=== PATIENT | female | born 2000 | race Caucasian/White ===

== ENCOUNTER 2025-04-07 11:08 | Emergency (ER) | payer OTHER, SELFPAY ==
--- OUTSIDE RECORDS SUMMARY | 2025-02-07 11:00 | XMS_ITS | Encounter Summary ---
[facility] [address] [place] [address] Care Team Providers Care Tug Master Name Role Phone Del Davidson APRN Primary Care Provider + Encounter Details Date Type Department Care Team (Late st Contact Info) Description 02/07/2025 11:00 AM EDT Lab [facility] [address] [place] [phone] Myxedema heart disease; care, subsequent , second trimester Social History Tobacco Use Types Packs/Day Years Used Date Smoking Tobacco: Former Cigarettes 0.3 5 0 06/16/2017 - 07/17/2022 Smokeless Tobacco: Never Alcohol Use Standard Drinks/Week Comments Never 0 (1 standard drink = 0.6 oz pur e alcohol) [facility] Utilities Answer Date Recorded In the past 12 months has [employer] electric, gas, oil, or water company threatened to shut off services in your home? No 06/15/2023 AUDIT-C Answer Date Recorded Q1: How often do you have a drink containing alcohol? Never 06/15/2023 Q2: How many drinks containi ng alcohol do you have on a typical day when you are drinking? Patient does not drink Q3: How often do you have si x or more drinks on one occasion? Never 06/15/2023 Overall Financial Resource Strain (CARDIA) Answe r Date Recorded How hard is it for you to pa y for the very basics like food, housing, medical care, and heating? Not hard at all 06/15/2023 PHQ-2 Answer Date Recorded Retired PHQ-9: Brief Depression Severity Measure Score 0 03/25/2023 [place] [employer] Health - Occupational Stress Questionnaire Answer Date Recorded Do you feel stress - tense, restless, nervous, or anxious, or unable to sleep at night because your mind is troubled all the time - these days? Not at all 06/15/2023 Exercise Vital Sign Answer Date Recorde d On average, how many days pe r week do you engage in moderate to strenuous exercise (like a brisk walk)? 3 days 06/15/2023 On average, how many minutes do you engage in exercise at this level? 30 min 06/15/2023 Hunger Vital Sign Answer Date Recorded Within the past 12 months, y ou worried that your food would run out before you got the money to buy more. Never true 06/15/20 23 Within the past 12 months, t he food you bought just didn't last and you didn't have money to get more. Never true 06/15/2023 PRAPARE - Transportation Answer Date Re corded In the past 12 months, has l ack of transportation kept you from medical appointments or from getting medications? No 05/18 In the past 12 months, has l ack of transportation kept you from meetings, work, or from getting things needed for daily living? No 06/15/2023 [place] Depression Scale Answer Date Recorded [place] Depression Scale Total 1 06/24/2023 The thought of harming myself has occurred to me . Unrecognized value 06/24/2023 Abuse Screen Answer Date Recorded Feels Unsafe at Home or Work/School no 06/15/2023 Feels Threatened by Someone no 05/18 Does Anyone Try to Keep You From Having Contact with Others or Doing Things Outside Your Home? no 06/15/2023 Physical Signs of Abuse Present no 06/15/2023 Housing Stability Answer Date Recorded Current Living Arrangements home 05/18 Potentially Unsafe Housing Conditions none 06/15/2023 Family and Community Support Answer Leonardo e Recorded If for any reason you need h elp with day-to-day activities such as bathing, preparing meals, shopping, managing finances, etc., do you get the help you need? I don't need any help 06/15/2023 How often do you feel lonely or isolated from those around you? Never 06/15/2023 Employment Answer Date Recorded Do you want help finding or keeping work or a job? I do not need or want help 06/15/2023 Disabilities Answer Date Recorded Difficulty Concentrating, Remembering or Making Decisions no 06/15/2023 Difficulty Managing Errands Independently no 06/15/2023 Education Answer Date Recorded Do you want help with school or training? For example, starting or completing job training or getting a high school diploma, GED or equivalent No 06/15/2023 Preferred Language Honduran 06/15/2023 PHQ-2 Answer Date Recorded Patient Health Questionnaire-2 Score 0 06/23/2024 Estimated Date of Delivery Comme nts Yes 06/22/2025 Sex and Gender Information Value Date Recorded Sex Assigned at Female 08/23/2024 10:58 PM EDT Legal Sex Female 11:21 AM EDT Gender Identity Not on file Sexual Orientation Straight 08/23/2024 10 :58 PM EDT documented as of this encounter Plan of Treatment Upcoming Encounters Date Type Department Care Team (Late st Contact Info) Description 06/27/2025 11:15 AM EST Office Visit [facility] [address] [place] [phone] Saira Castillo MD [facility] [address] [place], [place] [phone] 08/15/2025 12:15 PM EST Office Visit [facility] [address] [place] [phone] Saira Castillo MD [facility] [address] [place] [phone] documented as of this encounter Procedures Procedure Name Priority Date/Time Associated Diagnosis Comments TSH RFX ON ABNORMAL TO FREE T4 Routine 02/07/2025 10:42 AM EDT Myxedema heart disease care, subsequent , second trimester BILE ACIDS, TOTAL Routine 02/07/2025 10: 42 AM EDT Myxedema heart disease care, subsequent , second trimester documented in this encounter Results * TSH Rfx On Abnormal To Free T4 (02/07/2025 10:42 AM EDT) TSH 2.600 0.270 - 4.200 uIU/mL 02/07/2025 3:25 PM EDT [facility] Blood Venipuncture / Unknown 02/07/2025 10:42 AM EDT 02/07/2025 10:42 AM EDT us Susie De La Garza MD LAB BLOOD ORDERABLES Final Re sult [facility]
[address] [place] [address], * Bile Acids, Total (02/07/2025 10:42 AM EDT) Pathologist [facility] Bile Acids Total 4 0 - 10 umol/L 02/07/2025 3:17 PM EDT [facility] Blood Venipuncture / Unknown 02/07/2025 10:42 AM EDT 02/07/2025 10:42 AM EDT us Susie De La Garza MD LAB BLOOD ORDERABLES Final Re sult [facility]
[address] [place] [address], documented in this encounter Visit Diagnoses Diagnosis Myxedema heart disease Unspecified hypothyroidism care, subsequent , second trimester documented in this encounter Care Teams Tug Master Relationship Specialty Start Date End Date Del Davidson APRN [address] [place] [address] PCP - General Family Medicine 09/24/22 documented as of this encounter
--- OUTSIDE RECORDS SUMMARY | 2025-03-07 14:20 | XMS_ITS | Encounter Summary ---
Author Organization [facility] y[facility] Address [address] [place] [address] Care Team Providers Care Senior International Tax Manager Name Role Phone Del Davidson APRN Primary Care Provider + Encounter Details Date Type Department Care Team (Late st Contact Info) Description 03/07/2025 2:20 PM EDT Lab [facility] [address] [place] [phone] care, subsequent , second trimester Social History Tobacco Use Types Packs/Day Years Used Date Smoking Tobacco: Former Cigarettes 0.3 5 0 06/16/2017 - 07/17/2022 Smokeless Tobacco: Never Alcohol Use Standard Drinks/Week Comments Never 0 (1 standard drink = 0.6 oz pur e alcohol) [facility] Utilities Answer Date Recorded In the past 12 months has e electric, gas, oil, or water company threatened [...] Brief Depression Severity Measure Score 0 03/25/2023 [place] [employer] [place] [employer] - Occupational Stress Questionnaire Answer Date [...] things needed for daily living? No 06/15/2023 [place] Depression Scale Answer Date Recorded [place] Depression Scale Total 1 06/24/2023 The thought [...] GED or equivalent No 06/15/2023 Preferred Language Panamanian 06/15/2023 PHQ-2 Answer Date Recorded Patient Health [...] Description 06/27/2025 11:15 AM EST Office Visit [facility] [address] [place] [phone] Saira Castillo MD [address] [place], [place] [address] [place], [place] [phone] 08/15/2025 12:15 PM EST Office Visit [facility] [address] [place] [phone] Saira Castillo MD [facility] [address] [place] [phone] documented as of this encounter Procedures Procedure Name Priority Date/Time Associated Diagnosis Comments POCT GLUCOSE FINGERSTICK Routine 03/07/2025 2:19 PM EDT TREPONEMA PALLIDUM AB W/REFLEX RPR Routine 03/07/2025 2:18 PM EDT care, subsequent , second trimester TSH RFX ON ABNORMAL TO FREE T4 Routine 03/07/2025 2:18 PM EDT care, subsequent , second trimester GLUCOSE, POST 50 GM GLUCOLA Routine 03/07/2025 2:18 PM EDT care, subsequent , second trimester CBC (NO DIFF) Routine 03/07/2025 2:18 PM EDT care, subsequent , second trimester documented in this encounter Results * (ABNORMAL) POC Glucose (03/07/2025 2:19 PM EDT) Glucose 151(H) 70 - 130 mg/dL 03/07/2025 2:21 PM EDT [facility] Comment:Serial Number: [id number] Blood 03/07/2025 2:19 PM EDT 03/07/2025 2:21 PM EDT us Susie De La Garza MD POINT OF CARE TEST ORDERABLES Final Result [facility]
[address] [place] [address], [place] [phone] * TSH Rfx On Abnormal To Free T4 (03/07/2025 2:18 PM EDT) TSH 1.880 0.270 - 4.200 uIU/mL 03/07/2025 7:39 PM EDT [facility] Blood Venipuncture / Unknown 03/07/2025 2:18 PM EDT 03/07/2025 2:18 PM EDT us Susie De La Garza MD LAB BLOOD ORDERABLES Final Re sult [facility]
[address] [place] [address], [place] [phone] * Treponema pallidum AB w/Reflex RPR (03/07/2025 2:18 PM EDT) Pathologist [facility] Treponemal AB Total Non-Reacti ve Non-React florencio 03/07/2025 7:39 PM EDT [facility] Blood Venipuncture / Unknown 03/07/2025 2:18 PM EDT 03/07/2025 2:18 PM EDT Narrative [facility] - 03/07/2025 7:39 PM EDT Reactive results will reflex RPR testing. Susie De La Garza MD LAB BLOOD ORDERABLES Final Re sult [facility]
[address] [place] [address], * (ABNORMAL) CBC (No Diff) (03/07/2025 2:18 PM EDT) [facility] WBC 9.17 3.40 - 10.80 10*3/mm3 03/07/2025 7:12 PM EDT [facility] RBC 4.33 3.77 - 5.28 10*6/mm3 03/07/2025 7:12 PM EDT [facility] Hemoglobin 10.8(L) 12.0 - 15.9 g/dL 03/07/2025 7:12 PM EDT [facility] Hematocrit 34.7 34.0 - 46.6 % 03/07/2025 7:12 PM EDT [facility] MCV 80.1 79.0 - 97.0 fL 03/07/2025 7:12 PM EDT [facility] MCH 24.9(L) 26.6 - 33.0 pg 03/07/2025 7:12 PM EDT [facility] MCHC 31.1(L) 31.5 - 35.7 g/dL 03/07/2025 7:12 PM EDT [facility] RDW 13.4 12.3 - 15.4 % 03/07/2025 7:12 PM EDT [facility] RDW-SD 38.6 37.0 - 54.0 fl 03/07/2025 7:12 PM EDT [facility] MPV 10.4 6.0 - 12.0 fL 03/07/2025 7:12 PM EDT [facility] Platelets 355 140 - 450 10*3/mm3 03/07/2025 7:12 PM EDT [facility] Blood Venipuncture / Unknown 03/07/2025 2:18 PM EDT 03/07/2025 2:18 PM EDT us Susie De La Garza MD LAB BLOOD ORDERABLES Final Re sult Performing Organization Address City/[facility]/ZIP Co de Phone Number [facility]
[address] [place] [address], [place] [phone] * Glucose, Post 50 Gm Glucola (03/07/2025 2:18 PM EDT) [facility] Gestational GCT 138 65 - 139 mg/dL 03/07/2025 3:03 PM EDT [facility] Blood Venipuncture / Unknown 03/07/2025 2:18 PM EDT 03/07/2025 2:18 PM EDT us Susie De La Garza MD LAB BLOOD ORDERABLES Final Re sult Performing Organization Address City/[facility]/ZIP Co de Phone Number [facility]
[address] [place] [address], [place] [phone] documented in this encounter Visit Diagnoses Diagnosis care, subsequent , second trimester documented in this encounter Care Teams Senior International Tax Manager Relationship Specialty Start Date End Date Del Davidson APRN [address] [place] [address] [address] [place] [address] PCP - General Family Medicine 09/24/22 documented as of this encounter
[2025-04-07 11:08] VITALS: BP 128/68; PULSE 90; RESP 20; TEMP 36.4; O2SAT 100; BMI 37.5
--- NOTE | 2025-04-07 11:09 | ECG_ITS ---
APPROVED REPORT Exam: Resting ECG HR:84 bpm ECG Measurements Heart Rate 84 AXES MN 150 P 32 QRSd 78 QRS 62 QT 364 T 18 QTc 404 Conclusion SINUS RHYTHM LOW QRS VOLTAGE IN PRECORDIAL LEADS [QRS DEFLECTION < 1.0 mV IN CHEST LEADS] NONSPECIFIC ST & T-WAVE ABNORMALITY BORDERLINE ECG UNCONFIRMED REPORT Normal sinus rhythm. No ST elevation or depression. QTc normal at 404 Electronically signed by : ROSENDO MALLORY, 04/07/2025 14:22:36
--- NOTE | 2025-04-07 11:19 | XR_ITS ---
FINAL REPORT CLINICAL HISTORY: right chest pain, cough pt 29 weeks , double shielded COMPARISON: None FINDINGS: A single frontal view of the chest was obtained. There are increased markings in the right lung base compatible with pneumonia. The left lung is clear. There is no evidence of effusion or pneumothorax. Mediastinum is unremarkable. Heart size is normal. IMPRESSION: Right basilar pneumonia without effusion. Reviewed, Interpreted and Dictated by Camryn Douglas MD Transcribed by Mali Hernandez Authenticated and [facility]
--- NOTE | 2025-04-07 11:21 | HMH.EDCP ---
Discharge Plan Disposition Patient Disposition: Home, Self-Care Prescriptions Prescriptions: New azithromycin 250 mg tablet See Rx Instructions .ROUTE .COMPLEX Qty: 6 0RF Rx Instructions: For 250 mg dose pack: take 500 mg today (day 1), then 250 mg for 4 days (days 2-5) amoxicillin 500 mg capsule 1,000 mg PO TID 7 Days Qty: 42 0RF Activity Restrictions/Add. Instructions Additional Instructions/Restrictions: Your chest x-ray today showed a right sided pneumonia. You are being prescribed 2 different antibiotics to treat this. Take these as prescribed. I do encourage you to follow-up with your OB physician regarding these results, especially if symptoms do not improve. 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 Patient states that starting last night, she developed sharp right-sided chest pain that is worse with deep breathing. She denies any abdominal pain. She reports episode of vomiting last night. She denies any dysuria or hematuria. She denies any history of heart or lung issues. She denies any fevers. She does have a history of reflux and called her OB yesterday who recommended that she take Pepcid, which provided some relief but did not take it away completely. She does state that she was recently exposed to a friend who was seen in the ER and diagnosed with a viral illness. Related Data Previous Rx's ?Medication ?Instructions ?Recorded amoxicillin 500 mg capsule 1,000 mg (2 x 500 mg) PO TID 7 04/07/25 days #42 caps azithromycin 250 mg tablet See Rx Instructions PO .COMPLEX #6 04/07/25 tabs Allergies Allergy/AdvReac Type Severity Reaction Status Date / Time No Known Allergies Allergy Verified 04/07/25 11:28 [facility] Disclaimer: The information contained in this section may have been updated after the patient was seen, as this information can be updated by other users. Social History Smoking Status: Never smoker alcohol intake: never current occupational status: employed Travel in the last 8 weeks?: None ROS Obtained: Yes Systems reviewed as appropriate & no additional complaints except as documented Physical Exam General General appearance: alert and in no apparent distress Head Head exam: atraumatic Eye Eye exam: Present normal appearance ENT ENT exam: Present normal external ear exam Neck Neck exam: Present full ROM Chest Chest inspection: Present symmetric chest wall rise Respiratory Respiratory exam: Present normal lung sounds bilaterally; Absent respiratory distress, wheezes or stridor Cardiovascular Cardiovascular exam: Present regular rate, normal rhythm and normal heart sounds Abdominal Exam Abdominal exam: Present soft and distention (Gravid abdomen); Absent tenderness or guarding Extremities Exam Extremities exam: Present normal inspection Back Exam Back exam: Present normal inspection Neurological Exam Neurological exam: Present alert and oriented X3 Psychiatric Psychiatric exam: Present normal affect Skin Skin exam: Present warm and dry HEART Score HEART Score HEART Score assessment performed?: Yes HEART Score: 0 Critical Care Critical Care Time Critical Care Time: No Medical Decision Making Dane Inquiry Pt receiving controlled substance: No Vital Signs Vital Signs: 04/07/25 11:08 04/07/25 11:27 04/07/25 11:31 Temperature 97.6 F Temperature Source Oral Pulse Rate 90 89 Pulse Rate [Left Radial] 90 Respiratory Rate 20 19 Blood Pressure 110/67 Blood Pressure [Right Arm] 128/68 Blood Pressure Mean Blood Pressure Mean [Right Arm] 88 02 Sat by Pulse Oximetry 100 98 Oxygen Delivery Method Room Air Room Air 04/07/25 12:00 04/07/25 12:30 Temperature Temperature Source Pulse Rate 88 83 Pulse Rate [Left Radial] Respiratory Rate 23 23 Blood Pressure 109/67 L 104/64 L Blood Pressure [Right Arm] Blood Pressure Mean 75 76 Blood Pressure Mean [Right Arm] 02 Sat by Pulse Oximetry 98 97 Oxygen Delivery Method Lab Data Labs: Lab Results 04/07/25 11:20: WBC 10.6, RBC 4.50, Hgb 11.0 L, Hct 35.5 L, MCV 78.9 L, MCH 24.4 L, MCHC 31.0 L, RDW 13.7, Plt Count 336, MPV 9.6, Neut % (Auto) 77.8, Lymph % (Auto) 14.5, [place] % (Auto) 6.2, Eos % (Auto) 0.8, Baso % (Auto) 0.3, Neut # (Auto) 8.3 H, Lymph # (Auto) 1.5, [place] # (Auto) 0.7, Eos # (Auto) 0.1, Baso # (Auto) 0.0, Sodium 134 L, Potassium 3.8, Chloride 104, Carbon Dioxide 23, Anion Gap 10.8, BUN 4 L, Creatinine 0.50 L, Estimated Creat Clear 250, Estimated GFR 149, Est GFR ( Amer) 180, Glucose 98, Calcium 8.2 L, Total Bilirubin 0.8, AST 19, ALT 18, Alkaline Phosphatase 144 H, Troponin I < 0.01, NT-Pro-B Natriuret Pep 173 H, Total Protein 6.7, Albumin 3.5, Globulin 3.2, Albumin/Globulin Ratio 1.1, Lipase 59, SARS-CoV-2 (PCR) Not detected, Influenza A Untype (PCR) Not detected, Influenza Type B (PCR) Not detected 04/07/25 11:44: Urine Color Yellow, Urine Appearance Sl cloudy, Urine pH 7.0, Ur Specific [place] 1.020, Urine Protein Negative, Urine Glucose (UA) Negative, Urine Ketones 2+, Urine Blood Negative, Urine Nitrate Negative, Urine Bilirubin Negative, Urine Urobilinogen 1.0, Ur Leukocyte Esterase Negative, Urine RBC None, Urine WBC None, Ur Squamous Epith Cells 50-100, Urine Bacteria 3+ 04/07/25 11:20 04/07/25 11:20 Response Orders (Tests/Meds): ED MEDICATIONS Discontinued Medications Generic Name Dose Route Start Last Admin Trade Name Freq PRN Reason Stop Dose Admin Acetaminophen 1,000 mg 04/07/25 11:19 04/07/25 11:45 Acetaminophen 500mg Tab PO 04/07/25 11:20 1,000 mg ONCE ONE Administration ORDERS Category Date Time Status CXR --portable [XR chest portable] Stat Exams 04/07/25 11:19 Completed BNP [NT Pro Brain Natriuretic Pep.] Stat Lab 04/07/25 11:20 Completed CBC w/Auto Diff [Complete Blood Count Auto Diff] Stat Lab 04/07/25 11:20 Completed CMP [Comprehensive Metabolic Panel] Stat Lab 04/07/25 11:20 Completed Lipase Stat Lab 04/07/25 11:20 Completed Rapid PCR Covid and Flu A/B Stat Lab 04/07/25 11:20 Completed Troponin I Q3H Lab 04/07/25 14:30 Ordered Troponin I Q3H Lab 04/07/25 17:30 Ordered Troponin I Stat Lab 04/07/25 11:20 Completed UA [Urinalysis and Microscopic] Stat Lab 04/07/25 11:44 Completed Urine Culture Stat Micro 04/07/25 11:44 Received ECG Data Tracing #1: Attestation: I reviewed this ECG and interpreted as documented below: ECG Narrative: Normal sinus rhythm. No ST elevation or depression. 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 Patient states that starting last night, she developed sharp right-sided chest pain that is worse with deep breathing. She denies any abdominal pain. She reports episode of vomiting last night. She denies any dysuria or hematuria. She denies any history of heart or lung issues. She denies any fevers. She does have a history of reflux and called her OB yesterday who recommended that she take Pepcid, which provided some relief but did not take it away completely. She does state that she was recently exposed to a friend who was seen in the ER and diagnosed with a viral illness. On arrival, patient is normotensive, afebrile, heart rate within normal limits, breathing comfortably on room air with appropriate oxygen saturation. Physical exam, as stated above, revealed an overall well-appearing female in no distress. She does have a gravid abdomen but abdomen is soft, nontender nondistended. Cardiopulmonary exam reveals no wheezing, rales or rhonchi. She has no reproducible tenderness on chest palpation. Differential diagnosis includes, but is not limited to: Viral respiratory illness, referred pain, pneumonia, pleurisy, costochondritis, ACS, pericarditis, acute pancreatitis, viral respiratory illness, among others. The most morbid conditions were considered and workup was based on these. I have low suspicion for PE as patient is PERC negative and is negative on adapted years criteria Workup in the emergency department included: EKG, troponin, BNP, CBC with differential, CMP, COVID/flu swab urinalysis, lipase, urinalysis. Patient was amenable to chest x-ray with shielding of her abdomen as well as 1 g oral Tylenol. Patient's workup showed no leukocytosis, mildly low hemoglobin of 11 and hematocrit of 35.5. Patient does believe that her blood counts have been low in the past but again has no bleeding at this time. Mildly low sodium 134 but electrolytes otherwise unremarkable nonactionable. No ARELIS. Liver enzymes and bilirubin within normal limits. Very mildly elevated NT proBNP at 173 and troponin less than 0.01. Lipase normal at 59. Urine without protein but severely contaminated with 50-100 squamous epithelial cells. No leukocyte esterase or nitrates. Patient does have bacteria, however given significantly contaminated sample, I do not feel that this needs to be treated. Negative flu and COVID testing. EKG without evidence of ischemia. See interpretation above Chest x-ray was interpreted by me personally. She has a right lower lobe consolidation concerning for pneumonia. See radiology report for details. Given this, we will place patient on amoxicillin as well as azithromycin to cover for possible atypicals. I discussed these results with patient she was in agreement with this plan. I did instruct her to follow-up closely with her RULING MACHINE SET UP OPERATOR regarding her pneumonia as well as her anemia. Return precautions were given. All questions were answered. She demonstrated understanding and was in agreement with this plan. She was then discharged from the emergency department in stable condition.
[2025-04-07 11:27] VITALS: PULSE 90
[2025-04-07 11:28] LABS: Coronavirus 19, PCR Not Detected (NotDetected); Influenza A, PCR Not Detected (NotDetected); Influenza B, PCR Not Detected (NotDetected)
[2025-04-07 11:29] LABS: Hematocrit 35.5 % (37.0-47.0); Hemoglobin 11.0 g/dL (12.2-16.2); Immature Granulocytes % 0.4 %; Mean Corpuscular HGB Conc 31.0 g/dL (31.8-35.4); Mean Corpuscular Hemoglobin 24.4 pg (27.0-31.2); Mean Corpuscular Volume 78.9 fl (81-99); Nucleated Red Blood Cells % 0 %; Platelet Count 336 K/mm3 (142-424); Red Blood Count 4.50 M/mm3 (4.20-5.40); Red Cell Distribution Width-SD 39.5 fL; White Blood Count 10.6 K/mm3 (4.8-10.8)
[2025-04-07 11:31] VITALS: BP 110/67; PULSE 89; RESP 19; O2SAT 98
[2025-04-07] MEDS: ACETAMINOPHEN 500MG TAB 1000 MG PO (11:45)
[2025-04-07 11:47] LABS: Albumin Level 3.5 g/dl (3.5-5.0); Albumin/Globulin Ratio 1.1 (1.1-1.8); Blood Urea Nitrogen 4 mg/dl (7-17); Carbon Dioxide 23 mmol/L (22.0-30.0); Creatinine Clearance Estimated 250 mL/min (50-200); Creatinine,Serum 0.50 mg/dl (0.52-1.04); Estimated Glomerular Filt Rate 149 ml/min (>60); GFR (African American) 180 ML/MIN (>60); Globulin 3.2 g/dL (1.3-3.2); Lipase 59 U/L (23-300); Total Protein,Serum 6.7 g/dl (6.3-8.2)
[2025-04-07 11:48] LABS: Microscopic, Urine URINE MICROSCOPIC (MICROSCOPIC)
[2025-04-07 11:59] LABS: Anion Gap 10.8 mEq/L (5-15); Chloride 104 mmol/L (98-107); Potassium 3.8 mmoL/L (3.5-5.1); Sodium 134 mmol/L (136-145)
[2025-04-07 12:00] VITALS: BP 109/67; PULSE 88; RESP 23; O2SAT 98
[2025-04-07 12:02] LABS: Alanine Aminotransferase 18 U/L (12-78); Alkaline Phosphatase 144 U/L (38-126); Aspartate Amino Transferase 19 U/L (14-36); Bilirubin,Total 0.8 mg/dl (0.2-1.3); Calcium 8.2 mg/dl (8.4-10.2); Glucose 98 mg/dl (74-100)
[2025-04-07 12:12] LABS: NT Pro Brain Natriuretic Pep. 173 pg/mL (0-125)
--- OUTSIDE RECORDS SUMMARY | 2025-04-07 12:14 | XMS_ITS | Clinical Summary ---
Author Organization [facility] Address [address] [place] [address] Care Team Providers Care Rural Carrier Associate Name Role Phone Del Davidson APRN Primary Care Provider + Allergies No known active allergies Medications MV-Min-Fe Fum-FA-DHA ( 1 PO) Take 1 tablet by mouth Daily. 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 Assessment & Plan (01/03/2025 1:01 PM EDT): Update tfts- now and every 6- 8 weeks with f/u 8 weeks pp Assessment & Plan (08/30/2024 11:29 AM EDT): Check tfts, thyroid antibodies Assessment & Plan (09/18/2023 1:51 PM EDT): Update tfts, thyroid antibodies Refill synthroid Assessment & Plan (05/19/2023 1:25 PM EST): Update tfts- f/u 8 weeks pp Risk ppt discussed Assessment & Plan (01/08/2023 2:40 PM EDT): Taking levothyroxine 50 mcg daily Check tfts F/u 10 weeks Assessment & Plan (11/21/2022 4:02 PM EDT): Tsh improving but still above goal Samples synthroid 50 mcg daily provided and she will let me know if any palpitations or irritability Recheck lab 8 weeks Estimated Date of Delivery Comme nts Yes 06/22/2025 Encounters Date Type Department Care Team Description 04/07/2025 Telephone [facility] [address] [place] [address] Del Davidson APRN [place] 03/07/2025 2:20 PM EDT Lab [facility] [address] [place] [phone] care, subsequent , second trimester 03/07/2025 Travel 03/03/2025 Refill [facility] ENDOCRINOLOGY [address] [place] [address] Saira Castillo MD Hypothyroidism due to Makenize's thyroiditis 02/07/2025 11:00 AM EDT Lab [facility] [address] [place] [phone] Myxedema heart disease; care, subsequent , second trimester 02/07/2025 Travel 01/10/2025 10:30 AM EDT Lab [facility] [address] [place] [address] 16 weeks gestation of ; Personal history of unspecified digestive disease 01/10/2025 Travel from Last 3 Months Immunizations Immunization Administration Dates Next Due COVID-19 (PFIZER) Purple Cap Monovalent 11/02/19 21 Family History Medical History Relation Name Comments No Known Problems Father Diabetes Maternal Grandmother Nilam Diaz Thyroid disease Maternal Grandmother Nilam Diaz Thyroid disease Mother Sophie Monterroso Liver disease Paternal Grandfather Austin Kahn Relation Name Status Comments Father Alive Maternal Grandmother Nilam Diaz Mother Sophie Monterroso Alive Paternal Grandfather Austin Kahn Social History Tobacco Use Types Packs/Day Years Used Date Smoking Tobacco: Former Cigarettes 0.3 5 0 06/16/2017 - 07/17/2022 Smokeless Tobacco: Never Tobacco Cessation:Counseling Given: Not Answered Alcohol Use Standard Drinks/Week Comments Never 0 (1 standard drink = 0.6 oz pur e alcohol) [facility] [employer] Answer Date Recorded In the past 12 months has [employer], gas, oil, or water [employer] threatened to shut off services in your [...] Brief Depression Severity Measure Score 0 03/25/2023 [facility] [place] of Occupat ional Health - Occupational Stress [...] things needed for daily living? No 06/15/2023 [place] Depression Scale Answer Date Recorded [place] Depression Scale Total 1 06/24/2023 The thought [...] GED or equivalent No 06/15/2023 Preferred Language British 06/15/2023 PHQ-2 Answer Date Recorded Patient Health Questionnaire-2 Score 0 06/23/2024 Estimated Date of Delivery Comme nts Yes 06/22/2025 Sex and Gender Information Value Date Recorded Sex Assigned at Female 08/23/2024 10:58 PM EDT Legal Sex Female 11:21 AM EDT Gender Identity Not on file Sexual Orientation Straight 08/23/2024 10 :58 PM EDT Last Filed Vital Signs Vital Sign Reading Time Taken Comments Blood Pressure 98/64 01/03/2025 12:06 PM EDT Pulse 71 01/03/2025 12:06 PM EDT Temperature 36.5 C (97.7 F) 06/23/2024 10:11 AM EST Respiratory Rate 16 06/17/2023 7:30 AM EST Oxygen Saturation 100% 01/03/2025 12:06 PM EDT Inhaled Oxygen Concentration - - Weight 87.1 kg (192 lb) 01/03/2025 12:06 PM EDT Height 157.5 cm (5' 2 ) 01/03/2025 12:06 PM EDT Body Mass Index 35.12 01/03/2025 12:06 PM EDT Plan of Treatment Upcoming Encounters Date Type Department Care Team (Late st Contact Info) Description 06/27/2025 11:15 AM EST Office Visit [facility] END[facility] [address] [place] [phone] Saira Castillo MD [address] [place] [phone] 08/15/2025 12:15 PM EST Office Visit [facility] [address] [place] [address] Saira Castillo MD [address] [place] [phone] Health Maintenance Due Date Last Done Comments Annual Gynecologic Pelvic and Breast Exam 1998 HPV VACCINES (1 - 3-dose series) 2013 ANNUAL PHYSICAL 09/24/2022 INFLUENZA VACCINE 01/14/2025 05/05/2023 PAP SMEAR 02/14/2025 02/14/2022 (Patient-Reported (Performed Externally)) RSV Vaccine - Adults (1 - Risk 1-dose series) 04/27/2025 TDAP/TD VACCINES (3 - Td or Tdap) 05/05/2033 05/05/2023, 06/16/2020 CHLAMYDIA SCREENING Discontinued 12/06/2022 HEPATITIS C SCREENING Completed 11/25/2024 , 12/06/2022 Pneumococcal Vaccine 0-49 Aged Out No longer eligible based on patient's age to complete this topic Procedures Procedure Name Priority Date/Time Associated Diagnosis Comments POCT GLUCOSE FINGERSTICK Routine 03/07/2025 2:19 PM EDT TSH RFX ON ABNORMAL TO FREE T4 Routine 03/07/2025 2:18 PM EDT care, subsequent , second trimester TREPONEMA PALLIDUM AB W/REFLEX RPR Routine 03/07/2025 [...] , second trimester BILE ACIDS, TOTAL Routine 01/10/2025 10: 28 AM EDT 16 weeks gestation of Personal history of unspecified digestive disease HEPATITIS C ANTIBODY Routine 11/25/2024 1:17 PM EDT Irregular menstrual cycle CHLAMYDIA TRACHOMATIS, NEISSERIA GONORRHOEAE, PCR W/ CONFIRMATION Routine 12/06/2022 11:27 AM EDT 10 weeks gestation of , unspecified gestational age from Last 3 Months or Most Recently Relevant to Health Maintenance Results * (ABNORMAL) POC Glucose (03/07/2025 2:19 PM EDT) Glucose 151(H) 70 - 130 mg/dL 03/07/2025 2:21 PM EDT [facility] Comment:Serial Number: [id number] Blood 03/07/2025 2:19 PM EDT 03/07/2025 2:21 PM EDT us Susie De La Garza MD POINT OF CARE TEST ORDERABLES Final Result Performing Organization Address City/[facility]/ZIP Co de Phone Number [facility]
[address] [place] [address], [place] [phone] * Treponema pallidum AB w/Reflex RPR (03/07/2025 2:18 PM EDT) Treponemal AB Total Non-Reacti ve Non-React florencio 03/07/2025 7:39 PM EDT [facility] Blood Venipuncture / Unknown 03/07/2025 2:18 PM EDT 03/07/2025 2:18 PM EDT Narrative [facility] - 03/07/2025 7:39 PM EDT Reactive results will reflex RPR testing. us Susie De La Garza MD LAB BLOOD ORDERABLES Final Re sult [facility]
[address] [place] [address], [place] [phone] * TSH Rfx On Abnormal To Free T4 (03/07/2025 2:18 PM EDT) Only the most recent of2 resultswithin the time period is included. Pathologist [facility] TSH 1.880 0.270 - 4.200 uIU/mL 03/07/2025 7:39 PM EDT [facility] Blood Venipuncture / Unknown 03/07/2025 2:18 PM EDT 03/07/2025 2:18 PM EDT us Susie De La Garza MD LAB BLOOD ORDERABLES Final Re sult [facility]
[address] [place] [address], [place] [phone] * Glucose, Post 50 Gm Glucola (03/07/2025 2:18 PM EDT) [facility] Gestational GCT 138 65 - 139 mg/dL 03/07/2025 3:03 PM EDT [facility] Blood Venipuncture / Unknown 03/07/2025 2:18 PM EDT 03/07/2025 2:18 PM EDT us Susie De La Garza MD LAB BLOOD ORDERABLES Final Re sult Performing Organization Address City/[facility]/ZIP Co de Phone Number [facility]
[address] [place] [address], [place] [phone] * (ABNORMAL) CBC (No Diff) (03/07/2025 2:18 PM EDT) [facility] WBC 9.17 3.40 - 10.80 10*3/mm3 03/07/2025 7:12 PM EDT [facility] RBC 4.33 3.77 - 5.28 10*6/mm3 03/07/2025 7:12 PM EDT [facility] Hemoglobin 10.8(L) 12.0 - 15.9 g/dL 03/07/2025 7:12 PM EDT [facility] Hematocrit 34.7 34.0 - 46.6 % 03/07/2025 7:12 PM EDT [facility] MCV 80.1 79.0 - 97.0 fL 03/07/2025 7:12 PM EDT [facility] MCH 24.9(L) 26.6 - 33.0 pg 03/07/2025 7:12 PM EDT [facility] MCHC 31.1(L) 31.5 - 35.7 g/dL 03/07/2025 7:12 PM EDT [facility] RDW 13.4 12.3 - 15.4 % 03/07/2025 7:12 PM EDT [facility] RDW-SD 38.6 37.0 - 54.0 fl 03/07/2025 7:12 PM EDT [facility] MPV 10.4 6.0 - 12.0 fL 03/07/2025 7:12 PM EDT [facility] Platelets 355 140 - 450 10*3/mm3 03/07/2025 7:12 PM EDT [facility] Blood Venipuncture / Unknown 03/07/2025 2:18 PM EDT 03/07/2025 2:18 PM EDT us Susie De La Garza MD LAB BLOOD ORDERABLES Final Re sult [facility]
[address] [place] [address], * Bile Acids, Total (02/07/2025 10:42 AM EDT) Only the most recent of2 resultswithin the time period is included. Bile Acids Total 4 0 - 10 umol/L 02/07/2025 3:17 PM EDT [facility] Blood Venipuncture / Unknown 02/07/2025 10:42 AM EDT 02/07/2025 10:42 AM EDT us Susie De La Garza MD LAB BLOOD ORDERABLES Final Re sult [facility]
[address] [place] [address], * Hepatitis C Antibody (11/25/2024 1:17 PM EDT) Hepatitis C Ab Non-Reacti ve Non-Reacti ve 11/25/2024 11:25 PM EDT [facility] Blood Venipuncture / Unknown 11/25/2024 1:17 PM EDT 11/25/2024 1:17 PM EDT Tammie Kurtz APRN LAB BLOOD ORDERABLES Final Re sult Performing Organization Address [facility]/ZIP Co de Phone Number [facility]
[address] [place] [address], * Chlamydia trachomatis, Neisseria gonorrhoeae, PCR w/ confirmation - Urine, Urine, Clean Catch (12/06/2022 11:27 AM EDT) Chlamydia trachomatis, DAVID Negative Negative 12/09/2022 3:08 PM EDT [facility] Neisseria gonorrhoeae, DAVID Negative Negative 12/09/2022 3:08 PM EDT [facility] Urine Urine specimen obtained by clean catch procedure / Unknown Collection / Unknown 12/06/2022 11:27 AM EDT 12/06/2022 11:31 AM EDT Narrative [facility] - 12/09/2022 3:08 PM EDT Performed at: 01 - [address] [id number] Tricot Knitter: Chantel Matos MD, Phone: [phone] Samia Ellis CNM MICROBIOLOGY - GENERAL ORDERA BLES Final Result [facility] [address] [place] [address], [place] [phone] from Last 3 Months or Most Recently Relevant to Health Maintenance Insurance [facility] [place] Advance Directives * CPR (Attempt to Resuscitate) (Latest Code Status on File) Date Activated Date Inactivated Comments 06/15/2023 10:23 PM 06/17/2023 11:31 AM Question Answer Comments Code Status (Patient has no pulse and is not breathing): CPR (Attempt to Resuscitate) Medical Interventions (Patie nt has pulse or is breathing): Full * CPR (Attempt to Resuscitate) Date Activated Date Inactivated Comments 06/15/2023 4:41 AM 06/15/2023 10:23 PM Question Answer Comments Code Status (Patient has no pulse and is not breathing): CPR (Attempt to Resuscitate) Medical Interventions (Patie nt has pulse or is breathing): Full Support Level Of Support Discussed With: Patient Care Teams Rural Carrier Associate Relationship Specialty Start Date End Date Del Davidson APRN [address] [place] [address] [address] [place] [address] PCP - General Family Medicine 09/24/22
--- OUTSIDE RECORDS SUMMARY | 2025-04-07 12:14 | XMS_ITS | Encounter Summary ---
Author Organization [facility] Address [address] [place] [address] Care Team Providers Care Twister In Name Role Phone Del Davidson APRN Primary Care Provider + Encounter Details Date Type Department Care Team (Latest Contact Info) Description 03/07/2025 Travel Social History Tobacco Use Types Packs/Day Years Used Date Smoking Tobacco: Former Cigarettes 0.3 5 0 06/16/2017 - 07/17/2022 Smokeless Tobacco: Never Alcohol Use Standard Drinks/Week Comments Never 0 (1 standard drink = 0.6 oz pur e alcohol) [facility] Utilities Answer Date Recorded In the past 12 months has [employer] electric, gas, oil, or water company threatened [...] Brief Depression Severity Measure Score 0 03/25/2023 [facility] [place] of Occupat ional Health - Occupational Stress [...] things needed for daily living? No 06/15/2023 [place] Depression Scale Answer Date Recorded [place] Depression Scale Total 1 06/24/2023 The thought [...] GED or equivalent No 06/15/2023 Preferred Language Cameroonian 06/15/2023 PHQ-2 Answer Date Recorded Patient Health [...] Description 06/27/2025 11:15 AM EST Office Visit [facility] [address] [place] [phone] Saira Castillo MD [facility] [address] [place] [phone] 08/15/2025 12:15 PM EST Office Visit [facility] [address] [place] [phone] Saira Castillo MD [address] [place] [address] [address] [place] [phone] documented as of this encounter Visit Diagnoses Not on filedocumented in this encounter Care Teams Twister In Relationship Specialty Start Date End Date Del Davidson APRN [address] [facility] [address] [place] [address] PCP - General Family Medicine 09/24/22 documented as of this encounter
--- OUTSIDE RECORDS SUMMARY | 2025-04-07 12:14 | XMS_ITS | Encounter Summary ---
Author Organization [facility] Address [address] [place] [address] Care Team Providers Care Oracle Consultant Name Role Phone Del Davidson APRN Primary Care Provider + Encounter Details Date Type Department Care Team (Latest Contact Info) Description 02/07/2025 Travel Social History Tobacco Use Types Packs/Day Years Used Date Smoking Tobacco: Former Cigarettes 0.3 5 0 06/16/2017 - 07/17/2022 Smokeless Tobacco: Never Alcohol Use Standard Drinks/Week Comments Never 0 (1 standard drink = 0.6 oz pur e alcohol) [facility] Utilities Answer Date Recorded In the past 12 months has [employer] electric, gas, oil, or water company threatened [...] Brief Depression Severity Measure Score 0 03/25/2023 [facility] [place] of Occupat ional Health - Occupational Stress [...] things needed for daily living? No 06/15/2023 [place] Depression Scale Answer Date Recorded [place] Depression Scale Total 1 06/24/2023 The thought [...] GED or equivalent No 06/15/2023 Preferred Language Argentine 06/15/2023 PHQ-2 Answer Date Recorded Patient Health [...] Description 06/27/2025 11:15 AM EST Office Visit [facility]CRINOLOG[facility] [address] [place] [phone] Saira Castillo MD [facility] [address] [place] [phone] 08/15/2025 12:15 PM EST Office Visit [facility] [address] [place] [phone] Siara Castillo MD [address] [place] [address] [address] [place] [phone] documented as of this encounter Visit Diagnoses Not on filedocumented in this encounter Care Teams Oracle Consultant Relationship Specialty Start Date End Date Del Davidson APRN [address] [facility] [address] [place] [address] PCP - General Family Medicine 09/24/22 documented as of this encounter
--- OUTSIDE RECORDS SUMMARY | 2025-04-07 12:14 | XMS_ITS | Encounter Summary ---
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 No 06/15/2023 [place] Depression Scale Answer Date Recorded [place] Depression Scale Total 1 06/24/2023 The thought [...] GED or equivalent No 06/15/2023 Preferred Language Beninese 06/15/2023 PHQ-2 Answer Date Recorded Patient Health [...] Description 06/27/2025 11:15 AM EST Office Visit [facility] [facility] [address] [place] [phone] Saira Castillo MD [address] [phone] 08/15/2025 12:15 PM EST Office Visit [facility] [address] [place] [phone] Saira Castillo MD [facility] [address] [phone] documented as of this encounter Visit Diagnoses Diagnosis 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
--- OUTSIDE RECORDS SUMMARY | 2025-04-07 12:14 | XMS_ITS | Clinical Summary ---
Author Organization Healthcare Address [facility] [place] [address] Care Team Providers Care Compensation/Benefits Specialist Name Role Phone Per Patient, None Primary Care Provider Unavaila ble Allergies No known active allergies Medications No known medications Active Problems Problem Noted Date Diagnosed Date IUD check up 09/01/2018 Immunizations Immunization Administration Dates Next Due MC2 COVID-19 Vaccine (Purple Cap) 12 + 11/01/2020 Family History Medical History Relation Name Comments Thyroid disease Mother Relation Name Status Comments Mother Social History Tobacco Use Types Packs/Day Years Used Date Smoking Tobacco: Every Day Smokeless Tobacco: Never Tobacco Cessation:Ready to Q uit: Not Asked; Counseling Given: Not Answered Comments:Vape Alcohol Use Standard Drinks/Week Comments No 0 (1 standard drink = 0.6 oz pur e alcohol) Comments No Sex and Gender Information Value Date Recorded Sex Assigned at Female 07/28/2022 1:31 PM EST Legal Sex Female 8:49 PM EDT Gender Identity Female 07/28/2022 1:31 PM EST Sexual Orientation Straight 07/28/2022 1: 31 PM EST Last Filed Vital Signs Vital Sign Reading Time Taken Comments Blood Pressure 123/86 07/29/2022 1:09 PM EST Pulse - - Temperature - - Respiratory Rate - - Oxygen Saturation - - Inhaled Oxygen Concentration - - Weight 83 kg (182 lb 15.7 oz) 07/29/2022 1:09 PM EST Height 154.9 cm (5' 1 ) 07/29/2022 1:09 PM EST Body Mass Index 34.57 07/29/2022 1:09 PM EST Plan of Treatment Health Maintenance Due Date Last Done Comments [facility]-Depression Screening 1998 [facility]-HIV Screening 1998 [facility]-Hepatitis C Screening 1998 [facility]-Infant/Child/Adol SDOH Screenings 1998 [facility]-Varicella Vaccines (1 of 2 - 13+ 2-dose series) 09/05/2011 HPV Vaccines (1 - 3-dose series) 2013 [facility]- SDOH Screenings 2016 [facility]-Adult SDOH Screenings 2016 [facility]-DTaP,Tdap,and Td Vaccine s (1 - Tdap) 2017 [facility]-Hepatitis B Vaccines (1 of 3 - 19+ 3-dose series) 2017 [facility]-Pap Smear 03/15/2024 03/15/2021 [id number] Vaccine (3 - 2024- season) 2025 11/01/2020, 10/03/2020 [facility]-Influenza Vaccine (#1) 2025 08/17/2019 [facility]-Zoster Vaccines (1 of 2) 2048 [facility]-Obesity Intervention Completed 07/29/2022 [facility]-HIB Vaccines Aged Out No longer e ligible based on patient's age to complete this topic [facility]-Hepatitis A Vaccines Aged Out No longer eligible based on patient's age to complete this topic [facility]-IPV Vaccines Aged Out No longer e ligible based on patient's age to complete this topic [facility]-Pneumococcal Vaccine: Pediatrics (0 to 5 Years) and At-Risk Patients (6 to 49 Years) Aged Out No longer eligible b ased on patient's age to complete this topic [facility]-Rotavirus Vaccines Aged Out No lo nger eligible based on patient's age to complete this topic Procedures Procedure Name Priority Date/Time Associated Diagnosis Comments PAP TEST - CYTOLOGY Routine 03/15/2021 1 1:43 AM EDT Well woman exam from Last 3 Months or Most Recently Relevant to Health Maintenance Results * Pap Smear (03/15/2021 11:43 AM EDT) Case Report Cytology Case: [id number] Authorizing Provider: Liliam Rebolledo APRN Collected: 03/15/2021 1143 Ordering Location: Medical Office Building Received: 03/15/2021 1211 Obstetrics and Gynecology First Screen: Shima Sol, CT Specimen: ThinPrep Pap Test, Liquid-Based Cervical/Vaginal, CERVICAL/VAGINAL 03/22/2021 3:43 PM EDT [facility] Interpretation NEGATIVE FOR INTRAEPITHELIAL LESION OR MALIGNANCY 03/22/2021 3:43 PM EDT [facility] at 1543 EDT Specimen Adequacy Satisfactory for evaluation; endocervical/ghosh sformation zone component present. Slide scanned and imaged by [employer] Imaging System with manual review of all selected luciano. 03/22/2021 3:43 PM EDT [facility] Cervical cytology is a screening test primarily for squamous cancers and precursors and has associated false negative and positive results. New technologies such as liquid based sampling may decrease but will not eliminate all false negative results. Regular screening and follow-up of unexplained clinical signs and symptoms are recommended to minimize false negative results. Please see the ASCCP website (www.asccp.org)fo r followup recommendations. If HPV testing was requested, correlation with the results is suggested (please call Microbiology at [phone] for results). 03/22/2021 3:43 PM EDT [facility] Menstrual Status Cyclic 03/22/20 3:43 PM EDT [facility] History of Hysterectomy Not Applicable 03/22/2021 3:43 PM EDT [facility] Contraceptive History Intrauterine device 03/22/2021 3:43 PM EDT [facility] Last Menstrual Period 02/14/2021 03/22/2021 3:43 PM EDT [facility] Screening Type Routine Screen 2020 3:43 PM EDT [facility] High Risk? No 03/22/2021 3:43 PM EDT [facility] HPV Testing Requested? No HPV Testing Requested 03/22/2021 3:43 PM EDT [facility] Previous Cancer History No 03/22/2021 3:43 PM EDT [facility] Swab Vaginal and cervical cytologic material / Unknown Non-blood Collection / Unknown 03/15/2021 11:43 AM EDT 03/15/2021 12:11 PM EDT Liliam Rebolledo [facility] CYTOLOGY ORDERABLES Final Result [facility] [address] [place] [address] from Last 3 Months or Most Recently Relevant to Health Maintenance Insurance [employer] MEDICA[employer] Care Teams Compensation/Benefits Specialist Relationship Specialty Start Date End Date Per Patient, [place] [address] PCP - General 02/20/21
--- OUTSIDE RECORDS SUMMARY | 2025-04-07 12:14 | XMS_ITS | Encounter Summary ---
[facility] [address] [place] [address] Care Team Providers Care Drawbench Operator Name Role Phone Del Davidson APRN Primary Care Provider + Reason for Visit * Reason Onset Date Comments [place] 04/07/2025 Encounter Details Date Type Department Care Team (Late st Contact Info) Description 04/07/2025 Telephone [facility] [address] [facility] [address] [place] [address] Del Davidson APRN [address] [facility] [address] [place] [address] [place] Social History Tobacco Use Types Packs/Day Years Used Date Smoking Tobacco: Former Cigarettes 0.3 5 0 06/16/2017 - 07/17/2022 Smokeless Tobacco: Never Alcohol Use Standard Drinks/Week Comments Never 0 (1 standard drink = 0.6 oz pur e alcohol) [facility] Utilities Answer Date Recorded In the past 12 months has [employer], gas, oil, or water [employer] threatened to shut off services in your [...] Brief Depression Severity Measure Score 0 03/25/2023 [facility] - Occupational [...] things needed for daily living? No 06/15/2023 [place] Depression Scale Answer Date Recorded [place] Depression Scale Total 1 06/24/2023 The thought [...] GED or equivalent No 06/15/2023 Preferred Language Spanish 06/15/2023 PHQ-2 Answer Date Recorded Patient Health Questionnaire-2 Score 0 06/23/2024 Estimated Date of Delivery Comme nts Yes 06/22/2025 Sex and Gender Information Value Date Recorded Sex Assigned at Female 08/23/2024 10:58 PM EDT Legal Sex Female 11:21 AM EDT Gender Identity Not on file Sexual Orientation Straight 08/23/2024 10 :58 PM EDT documented as of this encounter Miscellaneous Notes * Telephone Encounter - Leonel Guzmán RegSched Rep - 04/07/2025 9:42 AM EDT Caller: Sandra Van Relationship to patient: Self Best call back number: Chief complaint: SHARP BACK PAIN, CHEST PAIN PATIENT SAID SHE IS 27 WEEKS Patient directed to call 911 or go to their nearest emergency room. Patient verbalized understanding: [x] Yes [] No If no, why? Additional notes: PATIENT SAID SHE WOULD GO TO THE ER documented in this encounter Plan of Treatment Upcoming Encounters Date Type Department Care Team (Late st Contact Info) Description 06/27/2025 11:15 AM EST Office Visit [facility] [address] [place] [address] Saira Castillo MD [address] [place] [id number] 08/15/2025 12:15 PM EST Office Visit [facility] [address] [facility] [address] [place] [id number] Saira Castillo MD [address] [facility] [address] [place] [address] documented as of this encounter Visit Diagnoses Not on filedocumented in this encounter Care Teams Drawbench Operator Relationship Specialty Start Date End Date Del Davidson APRN [address] [facility] [address] [place], [place] [id number] PCP - General Family Medicine 09/24/22 documented as of this encounter
[2025-04-07 12:15] LABS: Bilirubin,Urine Negative (Negative); Color,Urine YELLOW (Yellow); Glucose,Urine (UA) Negative (Negative); Ketones,Urine 2+ (Negative); Leukocyte Esterase,Urine Negative (Negative); PH,Urine 7.0 (5.0-8.5); Protein,Urine Negative (Negative); Specific Gravity, Urine 1.020 (1.005-1.030); Urobilinogen,Urine 1.0 EU/dl (0.2)
[2025-04-07 12:19] LABS: Troponin I < 0.01 ng/ml (0.00-0.034)
[2025-04-07 12:30] VITALS: BP 104/64; PULSE 83; RESP 23; O2SAT 97
[2025-04-07 12:34] LABS: Bacteria,Urine 3+ /lpf; Squamous Epithelial Cell,Urine 50-100 #/hpf (0-5)
[2025-04-07 13:06] VITALS: BP 106/80; PULSE 80; RESP 20; TEMP 36.8; O2SAT 98
== END 2025-04-07 13:07 | disposition home or self-care (01) ==
PROVIDERS: Emergency Provider Student in an Organized Health Care Education/Training Program; PCP Nurse Practitioner Family
DX: O99.513 Diseases of the respiratory system complicating pregnancy, third trimester (principal); J18.9 Pneumonia, unspecified organism; R07.89 Other chest pain; R11.2 Nausea with vomiting, unspecified; Z3A.29 29 weeks gestation of pregnancy
CPT/HCPCS: 71045; 80053; 81001; 83690; 83880; 84484; 85025; 87086; 87636; 93005; 99284; 99285